=== PATIENT | male | born 2005 | race Caucasian/White ===

== ENCOUNTER 2023-04-13 10:02 | Outpatient (CLI) | payer OTHER, SELFPAY ==
--- NOTE | 2023-04-13 10:15 | CRLHL7_ITS ---
For Patients: As a result of the Century Cures Act, medical imaging exams and procedure reports are released immediately into your electronic medical record. You may view this report before your referring provider. If you have questions, please contact your health care provider. INDICATION: Shoulder pain. TECHNIQUE: Multiplanar, multisequence MR imaging of the shoulder without intravenous contrast per standard shoulder protocol. COMPARISON: Right shoulder radiographs 03/05/2023. FINDINGS: ROTATOR CUFF: Supraspinatus tendon: Intact. Infraspinatus tendon: Mild tendinosis without discrete tear. Teres minor tendon: Intact. Subscapularis tendon: Intact. Musculature: No atrophy, edema, or fatty infiltration. CORACOACROMIAL ARCH: AC Joint: Intact. No appreciable degenerative changes. Acromion: Type 2 morphology. No abnormal downsloping or as acromiale. Acromiohumeral interval: 10 mm at its narrowest. Subacromial-subdeltoid bursa: No fluid. BICEPS-LABRAL COMPLEX: Biceps tendon long head: Intact. Labrum: No discrete tear identified. GLENOHUMERAL JOINT: Effusion: Negative. Intraarticular bodies: Negative. Cartilage: No high-grade chondral loss. Capsule: No capsular edema or abnormal thickening. Rotator interval: No infiltration of the anatomic fat. OSSEOUS: No acute fracture, impaction deformity, humeral head osteonecrosis, or marrow replacement. SOFT TISSUES: No mass, collection, or axillary lymphadenopathy. IMPRESSION: 1. Right shoulder without internal derangement. 2. Mild infraspinatus tendinosis. Dictated by Darryl Draper MD @ 04/13/2023 12:09:34 PM (Electronically Signed)
== END 2023-04-13 10:03 | disposition home or self-care (01) ==
LOC: MRI 10:03
PROVIDERS: PCP Nurse Practitioner Family; Visit Provider Nurse Practitioner Family
DX: M25.511 Pain in right shoulder (principal); M75.81 Other shoulder lesions, right shoulder
CPT/HCPCS: 73221

== ENCOUNTER 2023-07-08 23:17 | Emergency (ER) | payer OTHER, SELFPAY ==
[2023-07-08 23:25] VITALS: BP 135/78; PULSE 89; RESP 18; TEMP 36.8; O2SAT 99; BMI 33.5
--- NOTE | 2023-07-09 00:16 | ED_ITS ---
HPI - General Adult General Chief complaint: Cough Stated complaint: Cough Time Seen by Provider: 07/09/23 00:00 Source: patient Mode of arrival: ambulatory Limitations: no limitations History of Present Illness HPI narrative: 18-year-old male presents the emergency department with a 3 day history of mild cough and a 2 hour history of left anterior chest pressure. Chest pressure happens only with deep breath and or cough in can be reproduced with palpation of the chest wall. Cough is mucousy in nature, no fever, no hematemesis. He does have a history of SVT but has not had any runs of this lately. No history of asthma or chronic lung disease. He does use nicotine through a vape device. He has been using ibuprofen for help with the tightness and this has been intermittently helpful. No trauma or injury. No rash. He does have a family history of coronary artery disease at advanced ages but no premature coronary artery disease in his family. He admits that he thought he should get checked out because of his family history of heart disease. It sounds as though he has had an echo as part of his SVT workup, a few years ago. Past medical history benign per his report besides the SVT. He is not on daily suppressive medications. Through our conversation, it sounds like he has been offered an ablation for this in the past and we do discuss this a little bit. He seems reassured to know that this is a minimally invasive type of procedure and can be very helpful. Other than the cough and chest tightness, ROS is negative times 12 systems. Related Data Home Medications Medication Instructions Recorded Confirmed No Known Home Medications 02/04/23 07/08/23 Allergies Allergy/AdvReac Type Severity Reaction Status Date / Time No Known Drug Allergies Allergy Verified 07/08/23 23:28 [facility] Medical History (Updated 07/09/23 @ 00:25 by Missy Villagomez MD) History of supraventricular tachycardia ?Z86.79 - Personal history of other diseases of the circulatory system (ICD- 10) Surgical History (Updated 07/09/23 @ 00:27 by Clinton Jay RN) No significant past surgical history Social History Narrative: Single. No children. Formal exercise. Current every day smoker cigarettes and E-cigarette. Alcohol, rare. No illicit drug use. Smoking Status: Current some day smoker Exam Const: Vital Signs, click to edit/add: Vital Signs - 24 hr 07/08/23 23:25 Temperature 98.2 F Pulse Rate [Right Pulse Oximeter] 89 Respiratory Rate 18 Blood Pressure [Ri ght Upper Arm] 135/78 Pulse Oximetry 99 Oxygen Delivery Me thod Room Air Documenting provider has reviewed patient's vital signs: yes Common normals: no apparent distress General appearance: cooperative, comfortable and well kempt HENMT: Common normals: normocephalic Head and scalp: normocephalic Face and sinus: normal facial exam Mouth: oral and palatal mucosa normal Throat: posterior oropharynx normal Eye: Common normals: conjunctivae normal General eye: normal appearance of both eyes Conjunctiva: conjunctiva(e) normal Neck & C-Spine: Common normals: full ROM and no lymphadenopathy Chest: Common normals: inspection of chest normal Resp: Common normals: normal respiratory effort, no use of accessory muscles and clear to auscultation bilaterally Effort & inspection: able to speak in complete sentences and symmetric chest movement Auscultation: clear to auscultation bilaterally Cardio: Common normals: regular rate, regular rhythm, S1 normal heart sound, S2 normal heart sound and no murmurs Rate: regular rate Rhythm: regular rhythm Heart sounds: S1 normal and S2 normal Neuro: Speech: speech normal Motor exam: strength 5/5 throughout and no tremor noted Psych: Appearance: well kempt Attitude: engaged Mood and affect: euthymic mood Insight: insight good Judgement: judgment good Skin: Common normals: no rashes or lesions noted General skin exam: no ra shes or lesions noted Course Course ED Course: Vitals reassuring, exam reassuring. EKG performed and is also reassuring. Do not recommend further workup. Patient was easily reassured. Mechanism sounds pleuritic in nature without any worry for significant pathology. There is no tachycardia or hypoxia to suggest pulmonary embolism. Differential diagnosis does include coronary artery disease, arrhythmia, pleurisy, pneumonia, asthma, shingles, among others. We discussed symptomatic care with Tylenol, ibuprofen. Do not recommend viral swabs for the upper respiratory infection since it has been 3 days and antivirals would not be helpful and he has no signs of severe disease. Discussed the chest pressure and alarm symptoms that would warrant re- evaluation. He verbalizes understanding and agreement. All questions answered. Vital Signs Vital signs: Initial Vital Signs Temperature 98.2 F 07/08/23 23:25 Temperature Source Temporal Artery Scan 07/08/23 23:25 Pulse Rate 89 07/08/23 23:25 Respiratory Rate 18 07/08/23 23:25 Blood Pressure 135/78 07/08/23 23:25 Blood Pressure Mean 97 07/08/23 23:25 Blood Pressure Position Sitting 07/08/23 23:25 Pulse Oximetry 99 07/08/23 23:25 Oxygen Delivery Method Room Air 07/08/23 23:25 Vital Signs Temperature 98.2 F 07/08/23 23:25 Pulse Rate 89 07/08/23 23:25 Respiratory Rate 18 07/08/23 23:25 Blood Pressure 135/78 07/08/23 23:25 Pulse Oximetry 99 07/08/23 23:25 Oxygen Delivery Method Room Air 07/08/23 23:25 Temperature 98.2 F 07/08/23 23:25 Pulse Rate 89 07/08/23 23:25 Respiratory Rate 18 07/08/23 23:25 Blood Pressure 135/78 07/08/23 23:25 Pulse Oximetry 99 07/08/23 23:25 Oxygen Delivery Method Room Air 07/08/23 23:25 Medical Decision Making ECG Data Attestation: I personally reviewed and interpreted this ECG as follows: Prior ECG tracings: not available for review Interpretation: Normal sinus rhythm, rate 95. Normal axis. No significant ST or T-wave abnormalities. No ischemia. Normal EKG. Discharge Plan Discharge Clinical Impression: Pleurisy Patient Disposition: Home, Self-Care Condition: Stable Instructions: Pleurisy (DC) Additional Instructions: As we discussed, the chest pain does not seem related to a blood flow or el ectrical problem in your heart. This is great news. It seems more likely that this is related to inflammation of the lining of the lungs in the setting of your mild viral infection. Since it has been 3 days, antiviral treatments are not likely to be helpful, therefore I did not order viral swabs. This information will not change our course of treatment. There are no signs of asthma, wheezing, pneumonia or other lung complications with your cough. Cough medications are not particularly effective, nor necessary. The cough should clear on its own within 2 weeks. The chest tightness tends to be most problematic for about 5 days but will gradually improve. It is okay to use Tylenol, Aleve, or ibuprofen to help with the discomfort. There is no harm from you continuing to work or perform your typical activities during this illness. If you have any severe shortness of breath or exertional type of chest pain that is not reproducible with deep breath or palpation, you should be re-evaluated sooner. If your cough lasts longer than 2 weeks, you should make a follow-up appointment in the clinic to be re-evaluated. You should consider the ablation procedure for your SVT. It really is a minimally invasive type of procedure which can dramatically reduce the number of episodes and potential long-term damage. Activity Level: No Restrictions Discharge Diet: Regular Prescriptions: No Action No Known Home Medications Follow Up/Referrals: Ginna Cordova APRN, [employer]IST[employer] [Primary Care Provider] - Stand Alone Forms: [facility] Info Instructions
[2023-07-09 00:29] VITALS: BP 125/74; PULSE 84; RESP 18; TEMP 36.9; O2SAT 99
== END 2023-07-09 00:38 | disposition home or self-care (01) ==
LOC: ED 07-09 00:25
PROVIDERS: Emergency Provider Family Medicine; PCP Nurse Practitioner Family
DX: R09.1 Pleurisy (principal)
CPT/HCPCS: 93005; 99283; 99284